=== PATIENT | male | born 1990 | race Hispanic/Latino ===

== ENCOUNTER 2017-09-07 04:39 | Emergency (ER) | payer SELFPAY ==
[2017-09-07] MEDS ORDERED: Ibuprofen 200 MG TAB ONE (04:54)
[2017-09-07] MEDS ORDERED: Ondansetron ODT 4 MG TAB ONE (05:11)
== END 2017-09-07 05:05 | disposition home or self-care (01) ==
LOC: BURERS 04:39
DX: J11.1 Influenza due to unidentified influenza virus with other respiratory manifestations (principal); F17.210 Nicotine dependence, cigarettes, uncomplicated
CPT/HCPCS: 99283; Q0162